=== PATIENT | female | born 1970 | race Caucasian/White ===

== ENCOUNTER → 2024-02-25 10:28 | Outpatient (REF) | payer OTHER, SELFPAY | LOC: HWWDC 10:28 | PROVIDERS: ATTENDING PHYSICIAN Obstetrics & Gynecology; FAMILY PHYSICIAN Nurse Practitioner Family | DX: Z12.31 Encounter for screening mammogram for malignant neoplasm of breast (principal) | CPT/HCPCS: 77063; 77067 ==